=== PATIENT | female | born 1990 | race Caucasian/White ===

== ENCOUNTER 2018-04-15 12:18 | Inpatient (IN) | payer OTHER ==
[~2018-04-15] VITALS: Ht 170.2 cm; Wt 73.0 kg
--- NOTE | 2018-04-15 12:41 | ED GENERAL ADULT ---
History of Present Illness General Chief Complaint: Female Urogenital Problems Stated Complaint: "UTERINE FIBROID" Source: patient Exam Limitations: no limitations Vital Signs & Intake/Output Vital Signs & Intake/Output Vital Signs Date Time Temp Pulse Resp B/P B/P Pulse O2 O2 Flow FiO2 Mean Ox Delivery Rate 04/15 1556 98.7 88 18 121/80 100 Room Air 04/15 1442 98.3 78 134/89 100 Room Air 04/15 1237 98 04/15 1224 98.4 110 20 163/82 100 Room Air Allergies Coded Allergies: No Known Allergies (04/15/18) Reconcile Medications Tranexamic Acid (Lysteda) 650 MG TABLET 2 TAB PO TID UNKNOWN (Reported) during menses Triage Note: C/O PELVIC PAIN THAT RADIATES INTO HER BACK SINCE 09. STATES HX OF UTERINE FIBEROID. STATES SHE STARTED TRANEXAMIC ACID ON WEDNESDAY AND THAT THE PAIN STARTED RIGHT AFTER. RX'D MEDICATION D/T VAGINAL BLEEDING SINCE 03/14/17. N/V. Triage Nurses Notes Reviewed? yes : No Patient currently breastfeeds: No HPI: Patient is a 27-year-old otherwise healthy female with a known uterine fibroid under the treatment of Dr. Pham who presents today with severe pain. She localizes the pain to her suprapubic and left adnexal regions and states that it is radiating through to her back. It began acutely this morning at 9am She began a course of tranexamic acid 3 days ago and states that the pain has become progressively worse since starting that medication. She currently is bleeding less than a normal period. She was instructed by Dr. Pham to come to the emergency department if her pain becomes severe, as she may ultimately require surgical intervention. Upon my initial encounter the patient is writhing in the [facility], very tearful. Past History Travel History Traveled to [place] past 21 day No Medical History Any Pertinent Medical History? 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 No Review of Systems Review of Systems Constitutional: Reports: see HPI. EENTM: Reports: no symptoms. Respiratory: Reports: no symptoms. Cardiovascular: Reports: no symptoms. GI: Reports: see HPI, abdominal pain. Genitourinary: Reports: pain. Musculoskeletal: Reports: back pain. Skin: Reports: no symptoms. Neurological/Psychological: Reports: no symptoms. Hematologic/Endocrine: Reports: no symptoms. Immunologic/Allergic: Reports: no symptoms. All Other Systems: Reviewed and Negative Physical Exam Physical Exam General Appearance: well developed/nourished, no apparent distress, alert, awake , anxious, severe distress Comments: HEENT: Inspection of the head reveals a normocephalic cranium with no signs of trauma. Ophtho: Extraocular muscles are intact. The sclera are noninjected, and there is no obvious discharge. Neck: No signs of trauma or asymmetry to the neck. Respiratory: The patient exhibits no signs of labored breathing. Cardiac: Non-tachycardic. GI: Severe subjective suprapubic pain. Back: Radiation of suprapubic pain through to the back. : Active spotting. Neuro: The patient is oriented to person, place, time, and situation, with no obvious focal motor deficits. Cranial nerves II through XII are intact, and gait is normal. Behavioral: Severely agitated secondary to pain, writhing in the [facility]. Dermatologic: Dermatologic examination reveals no obvious rashes or exanthems. Core Measures ACS in differential dx? No CVA/TIA Diagnosis: No Sepsis Present: No Sepsis Focused Exam Completed? No Progress Differential Diagnoses I considered the following diagnoses in my evaluation of the patient: Uterine fibroid pain, ovarian torsion, ectopic , appendicitis, bowel perforation, other intra-abdominal surgical pathology, multiple other possibilities. Plan of Care: Orders Procedure Date/time Status Clear Liquid Diet 04/16 B Active CBC WITHOUT DIFFERENTIAL 04/16 0600 Active Pathway - chart 04/15 1900 Active Patient Data 04/15 190 Active CULTURE,URINE 04/15 1900 Active Code Status 04/15 1900 Active Add-on Test (ER Only) 04/15 1617 Active Add-on Test (ER Only) 04/15 1433 Active TYPE & SCREEN (NOT X-MATCH) 04/15 1433 Complete HUMAN BETA HCG SCREEN 04/15 1233 Complete URINE 04/15 1225 Active URINALYSIS 04/15 1225 Active COMPREHENSIVE METABOLIC PANEL 04/15 1225 Complete CBC WITHOUT DIFFERENTIAL 04/15 1225 Complete Admit to inpatient 04/15 UNK Active Vital Signs 04/15 UNK Active Nursing Misc 04/15 UNK Active Fernandez, Insertion/Removal/Asses 04/15 UNK Active Current Medications Sig/Jose Start time Last Medication Dose Stop Time Status Admin Dextrose/Sodium 1,000 ML .Q8H 04/15 1900 AC Chloride (D5-Normal Saline) Docusate Sodium 100 MG DAILY NEEDED PRN 04/15 1900 AC (Colace) Hydromorphone HCl 50 MG Q24H PRN 04/15 1900 AC (Dilaudid) Sodium Chloride 45 ML (Normal Saline 50ML Bag) Laboratory Tests 04/15/18 1233: Anion Gap 13, Estimated GFR > 60, BUN/Creatinine Ratio 7.1, Glucose 120 H, Calcium 9.4, Total Bilirubin 0.3, AST 27, ALT 29, Alkaline Phosphatase 47, Total Protein 7.0, Albumin 4.3, Globulin 2.7, Albumin/Globulin Ratio 1.6, Total Beta HCG NEGATIVE, CBC w Diff NO MAN DIFF REQ, RBC 2.98 L, MCV 83.9, MCH 26.3 L, MCHC 31.3 L, RDW 22.5 H, MPV 8.3, Gran % 69.1, Lymphocytes % 19.7 L, Monocytes % 10.7 H, Eosinophils % 0.4, Basophils % 0.1, Absolute Granulocytes 4.7, Absolute Lymphocytes 1.3, Absolute Monocytes 0.7 H, Absolute Eosinophils 0 , Absolute Basophils 0 Microbiology 04/15 1908 URINE ROUT: Urine Culture - CAN Cancelled: DUPLICATED 04/15 1814 URINE ROUT: Urine Culture - CAN Cancelled: DUPLICATED 04/15 173 URINE ROUT: Urine Culture - RECD 04/15 1730 URINE ROUT: Urine Culture - CAN Cancelled: DUPLICATED Initial ED EKG: none Comments: 1430 hrs.: Ultrasound callback from radiology suspicious for left ovarian torsion. No flow seen. I paged Dr. Pham back and she responded abruptly, but she is indisposed and asked that we instead called the steel die printer on-call. They also responded abruptly and stated that they will come to the bedside for stat evaluation. We have sent preoperative lab studies, and we continue to control the patient's pain. 1530 hrs.: On-call steel die printer evaluated the patient the bedside and kept her for the operating room. Patient was transported to the operating room in hemodynamically stable condition for definitive therapy. PATIENT: DELORIS BLANK PRESENT AGE: 27 PATIENT ACCOUNT NO: [id number] : 88 LOCATION: [facility] ORDERING PHYSICIAN: Juan Jose OLIVEIRA SERVICE DATE: 04/15/18 EXAM TYPE: US - US-TRANSVAGINAL EXAMINATION: US TRANSVAGINAL CLINICAL INFORMATION: Lower abdominal pain radiating to the back. History of fibroid. COMPARISON: None TECHNIQUE: Sonographic imaging of the pelvis was performed using transabdominal and transvaginal transducers. FINDINGS: The anteflexed uterus is heterogeneous. It measures approximately 10 cm long, 7.2 cm AP and 7.3 cm transverse. Within the posterior aspect of the lower uterine body, there appears to be a heterogeneous intramural leiomyoma, but is difficult to accurately measure this lesion. It has an estimated size of 5.8 x 4.8 x 5 cm. The leiomyoma appears to compress and displace the endometrium, anteriorly. The endometrium is not well-defined. Submucosal extension of the fibroid is possible. MR imaging of the pelvis would be helpful for further characterization. The right ovary is 3.2 x 4.4 x 4.2 cm. A simple cyst of the right ovary measures 3.7 x 3 x 3 cm. Brief color Doppler imaging of the right ovary shows arterial flow within ovarian stroma. In the left adnexal area, there is a solid structure without internal flow that measures approximately 6.5 x 3.5 x 6 cm. This probably represents the left ovary rather than a subserosal leiomyoma. A normal left ovary is not identified. No free fluid is identified within the cul-de-sac. IMPRESSION: 1. There is a leiomyoma of the lower uterine segment that appears to compress and anteriorly displace the endometrium, which is suboptimally defined. 2. In the left adnexal area, there is a solid-appearing mass without internal flow that measures approximately 6.5 x 3.5 x 6 cm. A normal left ovary is not identified. Left ovarian torsion is suspected. 3. Simple cyst of the right ovary measures up to 3.7 cm. The critical test result was discussed with Juan Jose Babb of the Emergency Room at 2:24 PM on and it was ascertained that the content and the importance of the findings was understood at the time of the direct communication. DICTATED BY: Casey Duncan MD DATE/TIME DICTATED:04/15/181420 WARP SPOOLER:JING DATE/TIME TRANSCRIBED:04/15/181420 CONFIDENTIAL, DO NOT COPY WITHOUT APPROPRIATE AUTHORIZATION. <Electronically signed in Other Vendor System> SIGNED BY: Casey Duncan MD 04/15/18 1434 Departure Departure Time of Disposition: 1530 Disposition: STILL A PATIENT Condition: Stable Clinical Impression Primary Impression: Ovarian torsion Departure Forms: Customer Survey General Discharge Information Critical Care Note Critical Care Note Critical Care Time: 30-74 min Comments: Critical care time spent > 40 minutes. The patient was suffering from a critical illness that acutely impairs one or more vital organ systems and there is a high probability of imminent or life threatening deterioration in the patient's condition. During this time I was personally involved in activities including diagnosing critical surgical emergency, controlling intractable pain, consulting surgical specialists stat, and decision making of high complexity to assess, manipulate, and support vital organ system failure (in this case, acute ovarian torsion) and/or to prevent further life threatening deterioration of the patient's condition. The failure to initiate these interventions on an urgent basis would likely result in sudden, clinically significant or life threatening deterioration in the patient's condition.
[2018-04-15 13:02] LABS: ABSOLUTE BASOPHIL COUNT 0 /CUMM (0.0-0.2); ABSOLUTE EOSINOPHIL COUNT 0 /CUMM (0.0-0.7); ABSOLUTE GRANULOCYTE CT 4.7 /CUMM (1.4-6.5); ABSOLUTE LYMPH COUNT 1.3 /CUMM (1.2-3.4); ABSOLUTE MONOCYTE COUNT 0.7 /CUMM (0.10-0.60); BASOPHIL % 0.1 % (0.0-2.0); EOSINOPHIL % 0.4 % (0-5); GRANULOCYTE % 69.1 % (42.2-75.2); MEAN CORPUSCULAR HGB 26.3 PG (27.0-31.0); MEAN CORPUSCULAR HGB CONC 31.3 G/DL (33.0-37.0); MEAN CORPUSCULAR VOLUME 83.9 FL (81.0-99.0); MEAN PLATELET VOLUME 8.3 FL (7.4-10.4); PLATELET COUNT 402 /CUMM (130-400); RBC DISTRIBUTION WIDTH 22.5 % (11.5-14.5); RED BLOOD CELL CT 2.98 /CUMM (4.20-5.40); WHITE BLOOD CELL COUNT 6.8 /CUMM (4.8-10.8)
--- NOTE | 2018-04-15 14:34 | ULTRASOUND REPORT ---
EXAMINATION: US TRANSVAGINAL CLINICAL INFORMATION: Lower abdominal pain radiating to the back. History of fibroid. COMPARISON: None TECHNIQUE: Sonographic imaging of the pelvis was performed using transabdominal and transvaginal transducers. FINDINGS: The anteflexed uterus is heterogeneous. It measures approximately 10 cm long, 7.2 cm AP and 7.3 cm transverse. Within the posterior aspect of the lower uterine body, there appears to be a heterogeneous intramural leiomyoma, but is difficult to accurately measure this lesion. It has an estimated size of 5.8 x 4.8 x 5 cm. The leiomyoma appears to compress and displace the endometrium, anteriorly. The endometrium is not well-defined. Submucosal extension of the fibroid is possible. MR imaging of the pelvis would be helpful for further characterization. The right ovary is 3.2 x 4.4 x 4.2 cm. A simple cyst of the right ovary measures 3.7 x 3 x 3 cm. Brief color Doppler imaging of the right ovary shows arterial flow within ovarian stroma. In the left adnexal area, there is a solid structure without internal flow that measures approximately 6.5 x 3.5 x 6 cm. This probably represents the left ovary rather than a subserosal leiomyoma. A normal left ovary is not identified. No free fluid is identified within the cul-de-sac. IMPRESSION: 1. There is a leiomyoma of the lower uterine segment that appears to compress and anteriorly displace the endometrium, which is suboptimally defined. 2. In the left adnexal area, there is a solid-appearing mass without internal flow that measures approximately 6.5 x 3.5 x 6 cm. A normal left ovary is not identified. Left ovarian torsion is suspected. 3. Simple cyst of the right ovary measures up to 3.7 cm. The critical test result was discussed with Juan Jose Babb of the Emergency Room at 2:24 PM on and it was ascertained that the content and the importance of the findings was understood at the time of the direct communication.
[2018-04-15] MEDS ORDERED: LYSTEDA650 M1 PO (14:36)
--- NOTE | 2018-04-15 15:52 | History & Physical Pre-Op ---
General Information and HPI MD Statement: I have seen and personally examined DELORIS BLANK and documented this H&P. The patient is a 27 year old F who presented with a patient stated chief complaint of [severe abdominal pain. Source of Information: patient Exam Limitations: no limitations History of Present Illness: 27yo, c/o acute severe abdominal pain since 9 am. She localizes the pain to her suprapubic and left adnexal regions and states that it is radiating through to her back. she has h/o menorrhagia and uterine fibroids. Patient described the pain was persistent, pain scale 10 out of 10 .she began a course of tranexamic acid 3 days ago for menorrhagia. She currently is bleeding less than a normal period. Patient came to ER for evaluation. I got call from Dr. Estrada ( ER attending), stated u/s show left ovarian solid mass, 6 cm in size, no blood flow , ovarian torsion suspected. 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 EENTM: Reports: no symptoms. Cardiovascular: Reports: no symptoms. Respiratory: Reports: no symptoms. Genitourinary: Reports: see HPI. All Other Systems: Reviewed and Negative Exam & Diagnostic Data Last 24 Hrs of Vital Signs/I&O Vital Signs Date Time Temp Pulse Resp B/P B/P Pulse O2 O2 Flow FiO2 Mean Ox Delivery Rate 04/15 1556 37.1 88 18 121/80 100 Room Air 04/15 1442 36.8 78 134/89 100 Room Air 04/15 1237 98 04/15 1224 36.9 110 20 163/82 100 Room Air Intake & Output 04/15 1600 04/15 0800 04/15 0000 Intake Total Output Total Balance Patient 77.111 kg Weight Weight Reported by Patient Measurement Method Physical Exam: VSS CV RRR Lungs CTA B/L Abdomen: diffuse tender at lower abdomen, pt redfuse exam further. Last 24 Hrs of Labs/Moose: Laboratory Tests 04/15/18 1233: Anion Gap 13, Estimated GFR > 60, BUN/Creatinine Ratio 7.1, Glucose 120 H, Calcium 9.4, Total Bilirubin 0.3, AST 27, ALT 29, Alkaline Phosphatase 47, Total Protein 7.0, Albumin 4.3, Globulin 2.7, Albumin/Globulin Ratio 1.6, CBC w Diff NO MAN DIFF REQ, RBC 2.98 L, MCV 83.9, MCH 26.3 L, MCHC 31.3 L, RDW 22.5 H, MPV 8.3, Gran % 69.1, Lymphocytes % 19.7 L, Monocytes % 10.7 H, Eosinophils % 0.4, Basophils % 0.1, Absolute Granulocytes 4.7, Absolute Lymphocytes 1.3, Absolute Monocytes 0.7 H, Absolute Eosinophils 0, Absolute Basophils 0 Assessment/Plan Assessment/Plan: 27yo, abdominal pain, ?ovarian torison 1. u/s results d/w pt in detail, she understand. emergency surgery to detorse ovary , possible cystectomy, possible oophrectomy and any other necessary procedures d/w pt in detail, she understand. R/B of exploratory laparotomy, ovarian detorsion, possible cystectomy, possible oophrectomy and any other necessary procedure d/w pt , including but not limit to infection, bleeding , damage other organs, reduce future fertility, wound infection etc, d/w pt she understand and agreed with surgery, all questions answered, informed consent obtained. OR informed.device processing engineer team to OR As Ranked By This Provider Problem List: 1. Ovarian torsion 2. Abdominal pain Attending MD Review Statement Attending Statement Attending MD Statement: examined this patient, discussed w/nursing
--- NOTE | 2018-04-15 17:54 | Operative Report ---
Operative/Inv Procedure Report Surgery Date: 04/15/18 Name of Procedure: Open appendectomy Pre-Operative Diagnosis: Ovarian torsion Post-Operative Diagnosis: Tip appendicitis with no evidence of ovarian torsion Estimated Blood Loss: anusha Surgeon/Immigration Inspector: DO Junior Dr.Xiolan Benito Ortega MD, MD Anesthesia: general endotracheal tube Monitors: Per routine Specimens: Vermiform appendix Complications: None Operative Indication: This is a 27-year-old female who presented with severe abdominal pain. She had an abdominal ultrasound which demonstrated a masslike right ovary with no evidence of blood flow. This is consistent with ovarian torsion she was taken emergently to the operating room by gynecology. In the operating room she was found to have normal ovaries both sides. The appendix appeared abnormal so I was in the room and I was asked to consult. Operative/Procedure Note Note: The abdomen was already opened and a retractor was in place. The cecum was identified the appendix was retrocecal so I had to lift the come up into the wound to just see the appendix. The body of the appendix was normal but the tip was firm and enlarged incision with tip appendicitis. To make sure we are not missing diverticulitis the sigmoid colon was located. I inspected the entire length of the sigmoid colon which appeared normal. At this point we concluded that the abdominal pain was from her appendicitis and we prepared to perform an appendectomy. The appendix was mobilized using electrocautery. The mesoappendix was identified and then clamped. The mesial appendix was divided distal to the clip left cautery. A 2-0 Vicryl was then used to ligate the mesoappendix. Once the base of the appendix was well exposed a 35 mm blue TA stapler was fired across the base of the appendix. The appendix was sharply divided distal to this. This was removed from the field and sent for routine path. We inspected the right lower quadrant for bleeding. Hemostasis was adequate. At this point I scrubbed out and gynecology closed incision
--- NOTE | 2018-04-15 18:46 | Operative Report ---
Operative/Inv Procedure Report Surgery Date: 04/15/18 Name of Procedure: Exploratory laparotomy,righht ovarian cyst aspiration, appendectomy. Pre-Operative Diagnosis: Severe abdominal pain, possible left ovarian torsion Post-Operative Diagnosis: Severe abdominal pain, tip appendicitis, small right ovarian cyst Estimated Blood Loss: less than 50ml Surgeon/Nuclear Logging Engineer: Bhavani Oliver MD, MD John Aversa, Anesthesia: general endotracheal tube IV Fluids: 1 L lactated Ringer's Urine Output: 125 mL clear urine at the end of procedure Specimens: Appendix, aspiration fluid, pelvic washings Complications: None Condition: Stable Operative Indication: 27-year-old, severe abdominal pain, ultrasound showed left adnexal solid mass 6 cm in size, no internal flow, suspect ovarian torsion. Operative/Procedure Note Note: The risks, benefits, indications of the procedure were reviewed with the patient and informed consent was obtained. The patient was taken to the operating room with IV running. The patient was placed in the supine position, given general anesthesia, prepared and draped in the usual sterile fashion. Fernandez catheter was placed as well. A Pfannenstiel skin incision was made approximately 2 cm above the symphysis pubis and extended sharply to the rectus fascia. The fascia was then incised bilaterally with Bovie, and the muscle of the anterior abdominal wall were in the midline by sharp and blunt dissection. The peritoneum was grasp itching 2 pickups, elevated and entered sharply with the Metzenbaum scissors. The pelvis was examined and, pelvic washing was obtained. An O'Aditya O'Ingram retractor was placed into incision and the bowel packed away with moist laparotomy sponge. Left ovary was examined, normal size, no ovarian torsion. Right ovary was examined, 2 cm cyst was aspirated, clear fluid. Uterus appears to normal size as well. No free fluid in the pelvis. At this time, general surgeon was called for intraoperative consultation, appendectomy was done by (see his op report). The pelvis was irrigated. All lap sponge and instruments were removed from on the abdomen. The peritoneum was closed with 3-0 Vicryl. The fascia was closed with 0 Vicryl in a running fashion. And hemostasis was assured. The skin was closed with 4-0 Monocryl subcuticularly. Sponge, lap, needle and instrument counts were correct 2. The patient was taken to the recovery room, awake and in stable condition. Findings: Normal uterus and left adnexa, small right ovarian simple cyst. Tip appendicitis. Discharge Disposition: PACU
[2018-04-15 20:00] VITALS: BP 117/62
[2018-04-15 20:24] VITALS: BP 117/62
[2018-04-15 22:00] VITALS: BP 114/65
--- NOTE | 2018-04-15 22:17 | PN- General Surgery ---
Subjective Subjective: 27 y/o female S/P open laparotomy for tip appendicitis and drainage of right ovarian cyst, resting in bed, feels well, pain controlled, tolerating POs clears Objective Vital Signs and I&Os Vital Signs Date Time Temp Pulse Resp B/P B/P Pulse O2 O2 Flow FiO2 Mean Ox Delivery Rate 04/15 2024 98.5 64 18 117/62 04/15 2000 98.5 64 18 117/62 100 Room Air 04/15 1556 98.7 88 18 121/80 100 Room Air 04/15 1442 98.3 78 134/89 100 Room Air 04/15 1237 98 04/15 1224 98.4 110 20 163/82 100 Room Air Intake & Output 04/15 1600 04/15 0800 04/15 0000 04/14 1600 04/14 0800 04/14 0000 Intake Total Output Total Balance Patient 170 lb Weight Weight Reported by Patient Measurement Method VSS, afebrile chest -CTA symmetric Heart -RRR Abd -soft, generalized tenderness, pos BS dressing -CDI bilateral lower extremities - calves soft, sensory-motor intact Current Medications: Current Medications Sig/Jose Start time Last Medication Dose Route Stop Time Status Admin Dextrose/Sodium 1,000 ML .Q8H 04/15 1900 AC Chloride IV Docusate Sodium 100 MG DAILY NEEDED PRN 04/15 1900 AC PO Hydromorphone HCl 50 MG Q24H PRN 04/15 1900 AC Sodium Chloride 45 ML IV Hydromorphone HCl 0 .STK-MED ONE 04/15 1446 DC .ROUTE Hydromorphone HCl 1 MG ONCE ONE 04/15 1445 DC 04/15 IV 04/15 1446 1448 Hydromorphone HCl 1 MG ONCE ONE 04/15 1345 DC 04/15 IV 04/15 1346 1340 Hydromorphone HCl 0 .STK-MED ONE 04/15 1319 DC .ROUTE Ketorolac 30 MG ONCE ONE 04/15 1230 DC 04/15 Tromethamine IV 04/15 1231 1235 Ketorolac 0 .STK-MED ONE 04/15 1230 DC Tromethamine .ROUTE Ondansetron HCl 4 MG ONCE ONE 04/15 1230 DC 04/15 IV 04/15 1231 1235 Ondansetron HCl 0 .STK-MED ONE 04/15 1230 DC .ROUTE Results Last 48 Hours of Labs: Laboratory Tests 04/15 1233 Chemistry Sodium (137 - 145 mmol/L) 142 Potassium (3.5 - 5.1 mmol/L) 3.8 Chloride (98 - 107 mmol/L) 107 Carbon Dioxide (22 - 30 mmol/L) 22 Anion Gap (5 - 16) 13 BUN (7 - 17 mg/dL) 5 L Creatinine (0.5 - 1.0 mg/dL) 0.7 Estimated GFR (>60 ml/min) > 60 BUN/Creatinine Ratio (7 - 25 %) 7.1 Glucose (65 - 99 mg/dL) 120 H Calcium (8.4 - 10.2 mg/dL) 9.4 Total Bilirubin (0.2 - 1.3 mg/dL) 0.3 AST (14 - 36 U/L) 27 ALT (9 - 52 U/L) 29 Alkaline Phosphatase (<127 U/L) 47 Total Protein (6.3 - 8.2 g/dL) 7.0 Albumin (3.5 - 5.0 g/dL) 4.3 Globulin (1.9 - 4.2 gm/dL) 2.7 Albumin/Globulin Ratio (1.1 - 2.2 %) 1.6 Total Beta HCG (NEGATIVE) NEGATIVE Hematology CBC w Diff NO MAN DIFF REQ WBC (4.8 - 10.8 /CUMM) 6.8 RBC (4.20 - 5.40 /CUMM) 2.98 L Hgb (12.0 - 16.0 G/DL) 7.8 L Hct (37 - 47 %) 25.0 L MCV (81.0 - 99.0 FL) 83.9 MCH (27.0 - 31.0 PG) 26.3 L MCHC (33.0 - 37.0 G/DL) 31.3 L RDW (11.5 - 14.5 %) 22.5 H Plt Count (130 - 400 /CUMM) 402 H MPV (7.4 - 10.4 FL) 8.3 Gran % (42.2 - 75.2 %) 69.1 Lymphocytes % (20.5 - 51.1 %) 19.7 L Monocytes % (1.7 - 9.3 %) 10.7 H Eosinophils % (0 - 5 %) 0.4 Basophils % (0.0 - 2.0 %) 0.1 Absolute Granulocytes (1.4 - 6.5 /CUMM) 4.7 Absolute Lymphocytes (1.2 - 3.4 /CUMM) 1.3 Absolute Monocytes (0.10 - 0.60 /CUMM) 0.7 H Absolute Eosinophils (0.0 - 0.7 /CUMM) 0 Absolute Basophils (0.0 - 0.2 /CUMM) 0 Assessment/Plan Assessment/Plan POC -open tip appendicitis right ovarian drainage Advance diet as tolarated OOB in am ALPS for DVT proph D/C planning for am follow-up with Dr. Dixon 2 weeks call office for appointment H/H low -repeat CBC in am Problem List: 1. Ovarian torsion 2. Appendicitis Core Measures Venous Thromboembolism VTE Risk Factors Surgery No Mechanical VTE Prophylaxis d/t N/A MechProphylax Ordered No VTE Pharm Prophylaxis d/t NA PharmProphylax ordered
[2018-04-15 22:26] VITALS: BP 114/65
[2018-04-16] VITALS (12 sets, daily range): BP systolic 94–125; BP diastolic 50–72
--- NOTE | 2018-04-16 05:27 | PN- OBGYN ---
Surgical Brief Attending Note Brief Attending Note: Late entry for 04/15/2018 8:30PM pt is resting in bed, c/o pain is controlled by NEONATAL NURSE PRACTITIONER, no other complaints VSS Abdomen: soft, mild tender at lower abdomen, no rebound, no Guarding, incision D /C/I Operative findings d/w pt in detail, she understand. will continue RT postop care, repeat CBC AM.
[2018-04-16 09:08] LABS: ABSOLUTE BASOPHIL COUNT 0 /CUMM (0.0-0.2); ABSOLUTE EOSINOPHIL COUNT 0 /CUMM (0.0-0.7); ABSOLUTE LYMPH COUNT 1.2 /CUMM (1.2-3.4); ABSOLUTE MONOCYTE COUNT 0.8 /CUMM (0.10-0.60); BASOPHIL % 0.4 % (0.0-2.0); EOSINOPHIL % 0 % (0-5); GRANULOCYTE % 74.4 % (42.2-75.2); MEAN CORPUSCULAR HGB 26.6 PG (27.0-31.0); MEAN CORPUSCULAR HGB CONC 31.8 G/DL (33.0-37.0); MEAN CORPUSCULAR VOLUME 83.7 FL (81.0-99.0); MEAN PLATELET VOLUME 9.2 FL (7.4-10.4); PLATELET COUNT 279 /CUMM (130-400); RBC DISTRIBUTION WIDTH 23.1 % (11.5-14.5); WHITE BLOOD CELL COUNT 8.1 /CUMM (4.8-10.8)
--- NOTE | 2018-04-16 09:21 | PN- General Surgery ---
Subjective Subjective: Awake, alert No complaints overnight Tolerating diet, pain well controlled Objective Vital Signs and I&Os Vital Signs Date Time Temp Pulse Resp B/P B/P Pulse O2 O2 Flow FiO2 Mean Ox Delivery Rate 04/16 0809 97.7 78 16 98/58 99 Room Air 04/16 0800 97.7 78 16 98/58 04/16 0615 98.6 68 18 100/50 100 Room Air 04/16 0600 98.6 68 18 100/50 04/16 0215 98.7 54 20 94/50 100 Room Air 04/16 0000 98.4 53 16 110/60 04/16 0000 98.4 53 16 110/60 99 04/15 2226 98.2 65 18 114/65 100 Room Air 04/15 2200 98.2 65 18 114/65 04/15 2024 98.5 64 18 117/62 04/15 2000 98.5 64 18 117/62 100 Room Air 04/15 1556 98.7 88 18 121/80 100 Room Air 04/15 1442 98.3 78 134/89 100 Room Air 04/15 1237 98 04/15 1224 98.4 110 20 163/82 100 Room Air Intake & Output 04/16 1600 04/16 0800 04/16 0000 04/15 1600 04/15 0800 04/15 0000 Intake Total 1000 125 Output Total 500 300 Balance 500 -175 Intake, IV 1000 125 Output, Urine 500 300 Patient 161 lb 170 lb Weight Weight Bed scale Reported by Patient Measurement Method Physical Exam: afebrile bp high 90's systolic, denies lightheadedness or nausea Abd: soft, good bs, nondistended Wd: dressing clean and dry Assessment/Plan Assessment/Plan 27yo female pod 1 s/p open exploration for ovarian torsion/open appendectomy looks good post appy cbc last night 7.06/11, pending this am follow up cbc per Dr Benito VILLA planning per CHILDHOOD TEACHER - follow up instructions given to see Dr Dixon in 2 weeks, call for an appointment
[2018-04-16 09:47] LABS: HEMATOCRIT 19.2 % (37-47)
--- NOTE | 2018-04-16 11:34 | PN- OBGYN ---
Surgical Brief Attending Note Brief Attending Note: Pt is resting in bed, pain controlled by CINDER CRANE OPERATOR, tolerate clear lquid diet, no nausea, flatus(-). boss in place, clear urine. no other issues PE: VSS CV RRR Lungs CTA B/L Abdomen: soft, mild tender at lower abdomen, no rebound, no guarding. incision dressing D/C/I Ext: DCT (-) small amount of vaginal bleeidng on pad A/P: 27yo, s/p Exp, lap , right ovarian cyst aspiration, appendectomy, POD #1 1. h/h 6.1/19.2, will transfuse 3 U PRBC, R/B/A of blood transfusion d/w pt, she understand, all questions answered, informed cosnent obtained. 2. surgery input appreciated, will follow recommendation 3. will d/c CINDER CRANE OPERATOR, switch to PO pain meds 4. will d/c boss, encourage ambulation. 5. will monitor blaise
[2018-04-17 06:42] VITALS: BP 114/73
[2018-04-17 09:18] LABS: ABSOLUTE BASOPHIL COUNT 0 /CUMM (0.0-0.2); ABSOLUTE EOSINOPHIL COUNT 0.1 /CUMM (0.0-0.7); ABSOLUTE GRANULOCYTE CT 3.6 /CUMM (1.4-6.5); ABSOLUTE LYMPH COUNT 2.2 /CUMM (1.2-3.4); ABSOLUTE MONOCYTE COUNT 0.8 /CUMM (0.10-0.60); BASOPHIL % 0.6 % (0.0-2.0); EOSINOPHIL % 1.7 % (0-5); GRANULOCYTE % 53.7 % (42.2-75.2); MEAN CORPUSCULAR HGB 27.6 PG (27.0-31.0); MEAN CORPUSCULAR HGB CONC 32.6 G/DL (33.0-37.0); MEAN CORPUSCULAR VOLUME 84.6 FL (81.0-99.0); MEAN PLATELET VOLUME 8.6 FL (7.4-10.4); PLATELET COUNT 318 /CUMM (130-400); RBC DISTRIBUTION WIDTH 19.2 % (11.5-14.5); WHITE BLOOD CELL COUNT 6.8 /CUMM (4.8-10.8)
[2018-04-17 09:44] LABS: RED BLOOD CELL CT 3.42 /CUMM (4.20-5.40)
--- NOTE | 2018-04-17 10:38 | PN- OBGYN ---
Surgical Brief Attending Note Brief Attending Note: pt is rsering in bed, tolerate diet, void without difficulties, flatus(+), c/o vaginal bleeidng increased compare to before.( h/o menorrheagia, she was taking lysteda prior to admisison) PE: VSS Abdomen: soft, LLQ moderate tender, BS(+), incision D/C/I Ext: DCT (-) A/P: 27yo, s/p laparotomy, right ovarian cyst aspiration, appendectomy, POD#2 1. h/h9.02/13 after transfusion 2. consider LLQ tenderness, will schedule CT scan to evaluate 3. pain management as needed 4. will monitor VB closely
[2018-04-17 15:02] VITALS: BP 124/74
--- NOTE | 2018-04-17 15:46 | CT SCAN REPORT ---
EXAMINATION: CT ABDOMEN AND PELVIS WITH CONTRAST CLINICAL INFORMATION: Left lower quadrant abdominal pain. Moderately tender. Status post laparoscopic appendicectomy and right ovarian cyst aspiration. Surgery was done 2 days ago. COMPARISON: Transvaginal ultrasound done on 04/15/2018. TECHNIQUE: Multidetector volumetric imaging was performed of the abdomen and pelvis following IV administration of 95 mL of Optiray 320 intravenous contrast. Sagittal and coronal reformatted images were obtained on the technologist's workstation. DLP: 342.54 mGy-cm FINDINGS: LUNG BASES: Linear airspace disease is noted at both lung bases, most consistent with hypoventilatory, atelectatic changes. LIVER, GALLBLADDER, AND BILIARY TREE: The liver is normal in size, shape, and attenuation. No focal hepatic lesion or biliary ductal dilatation is present. The gallbladder is unremarkable with no evidence of radiopaque gallstones, gallbladder wall thickening, or obvious pericholecystic inflammatory changes. PANCREAS: Unremarkable. SPLEEN: Unremarkable. ADRENAL GLANDS: Unremarkable. KIDNEYS AND URETERS: Both kidneys are hyperlobulated, likely represent congenital variation, otherwise unremarkable. Both renal collecting system and both ureters are decompressed. BLADDER: Nondependent air pockets are identified within the anterior part of the lumen of the urinary bladder, likely represent changes secondary to recent instrumentation/catheterization. Please correlate clinically. GASTROINTESTINAL TRACT: The large bowel as well as the small bowel loops are decompressed. There is a subtle radiopaque suture identified in the region of the base of the cecum, consistent with recent appendicectomy at right iliac fossa region. Small residual appendiceal stump is noted. There is no abnormal fluid collection or any discrete mass identified at the surgical bed. ABDOMINAL WALL: Multiple air pockets are identified within the lower anterior and pelvic wall bilaterally consistent with recent laparoscopy. OTHER FINDINGS: Free intraperitoneal air is present, also consistent with recent laparoscopy. LYMPH NODES: Normal. VASCULAR: Unremarkable. PELVIC VISCERA: There is a large heterogeneous mixed density into a uterine mass identified within the lower uterine segment extending into the cervix measures 8.4 x 8.1 x 6.2 cm at its maximum anteroposterior by transverse by craniocaudal dimension. When correlating with prior ultrasound of the pelvis, the finding would be consistent with the degenerated submucosal fibroid. Specific note is made of small amount of endometrial cavitary fluid. There is a 2.40 cm left adnexal well-circumscribed hypodensity present, seen best on the coronal images likely represent the left ovary, morphologically appear unremarkable. There is no right adnexal mass identified. The right ovary is not visualized. OSSEOUS STRUCTURES: No suspicious lytic or scrotal abnormalities. IMPRESSION: 1. Evidence of air pockets are noted within the lower anterior abdominal and pelvic last as well as evidence of free intraperitoneal air, consistent with recent surgery done 2 days ago. 2. No evidence of any focal fluid collection identified at the surgical bed. 3. Air pockets within the urinary bladder, most consistent with recent instrumentation. 4. Heterogeneous mixed density mass within the lower uterine segment, may represent recent sonographic detected submucosal leiomyoma. 5. Morphologically normal-appearing left ovary. This critical result was discussed with Dr. Oliver at 3:40 PM on 04/17/2018 and it was ascertained that the content and urgency of the report was understood at the time of direct communication.
[2018-04-17] MEDS ORDERED: HYDROCODON-ACE1 EAC2 PO (16:24)
--- NOTE | 2018-04-17 16:30 | PN- OBGYN ---
Surgical Brief Attending Note Brief Attending Note: pt is ambulating, c/o feels much better, pain controlled by pain medication, small amount of vaginal bleeidng. CT scan: no pathology found. results d/w pt, she understand. will d/c home, f/u in office in 1wk, discharge instructions given, she understand.
--- NOTE | 2018-04-19 10:18 | Discharge Summary ---
Visit Information Visit Dates Admission Date: 04/15/18 Discharge Date: 04/17/18 Hospital Course Course Attending Physician: Bhavani Oliver MD Primary Care Physician: Patient Has No Primary Care Dr Hospital Course: 27-year-old, admitted for severe abdominal pain, suspect for ovarian torsion. She underwent exploratory laparotomy, appendectomy, right ovarian cyst aspiration on April 15, 2018. Patient tolerated the procedure well, no complications. During hospital stay patient remained in stable condition, vitals within normal limits, pain controlled by pain medication. She received 3 units of PRBC due to low H&H(patient had a history of menorrhagia and uterine fibroids, she was taking tranexamic acid at the time of admission .) She was discharged on April 17, 2018 with instructions given Complications: None Allergies: Coded Allergies: No Known Allergies (04/15/18) Significant Procedures: Exploratory laparotomy, appendectomy, right ovarian cyst aspiration Disposition Summary Disposition Principal Diagnosis: Severe abdominal pain, tip appendicitis, right ovarian cyst Additional Diagnosis: Chronic anemia due to uterine fibroids and menorrhagia Discharge Disposition: home or self care Discharge Instructions General Discharge Information Code Status: Full Code Patient's Diet: Regular Patient's Activity: As tolerated Follow-Up Instructions/Appts: Follow-up in office in 1 week Medications at Discharge Discharge Medications: Continue taking these medications: Tranexamic Acid (Lysteda) 650 MG TABLET 2 Tablet ORAL THREE TIMES DAILY Instructions: during menses Comments: NOT GIVEN IN HOSPITAL Start taking the following new medications: Hydrocodone/Acetaminophen (Hydrocodon-Acetaminophen 5-325) 5 MG-325 MG TABLET 2 Tablet ORAL EVERY 6 HOURS NEEDED as needed for ABDOMINAL PAIN Qty = 30 No Refills Copies To: Bhavani Oliver MD Attending Review Statement Documenting Attending: Bhavani Oliver MD
== END 2018-04-17 18:00 | DRG 518 ==
LOC: ERH 12:18 → ER-OR 12:59 → PACUH 18:32 → ENRESERV 18:55 → ENTRNSPT 20:01 → EDTRNSPTSTS 20:04 → 2NB 20:13 → CMPTRNSPT 21:02 → ENTRNSPT 04-17 17:44 → EDTRNSPT 04-17 17:48 → EDTRNSPTSTS 04-17 17:48 → 2NB 04-17 18:00 → CMPTRNSPT 04-17 18:04
PROVIDERS: Obstetrics & Gynecology; Physician Assistant Medical
PROC: 0DTJ0ZZ Resection of Appendix, Open Approach (ICD-10-PCS; principal; 2018-04-15)
PROC: 0U903ZZ Drainage of Right Ovary, Percutaneous Approach (ICD-10-PCS; 2018-04-15)
PROC: 30233N1 Transfusion of Nonautologous Red Blood Cells into Peripheral Vein, Percutaneous Approach (ICD-10-PCS; 2018-04-16)
DX: N83.201 Unspecified ovarian cyst, right side (principal); N92.0 Excessive and frequent menstruation with regular cycle; D25.9 Leiomyoma of uterus, unspecified
CPT/HCPCS: 2NBSP; 36415; 36592; 74177; 81025; 86920; 87086; 88305; 96374; 96375; 96376; C9290; J0131; J0690; J1170; J1885; J2250; J2405; J3010; J3101; J3490; J7042; P9016

== ENCOUNTER 2018-05-18 16:29 | Emergency (ER) | payer OTHER ==
[~2018-05-18] VITALS: Ht 170.2 cm; Wt 74.8 kg
[~2018-05-18 16:29] MED LIST: HYDROCODON-ACE1 EAC2 PO; LYSTEDA650 M1 PO
--- NOTE | 2018-05-18 17:28 | ED GI/GU/ABDOMINAL COMPLAINT ---
History of Present Illness General Chief Complaint: Abdominal Pain/Flank Pain Stated Complaint: ABD PAIN FIBROID Source: patient, family, old records Exam Limitations: no limitations Vital Signs & Intake/Output Vital Signs & Intake/Output Vital Signs Date Time Temp Pulse Resp B/P B/P Pulse O2 O2 Flow FiO2 Mean Ox Delivery Rate 05/19 0109 98.7 79 18 99/61 100 Room Air 05/19 0043 98.7 86 18 99/57 100 Room Air 05/19 0004 99.0 88 18 101/59 99 Room Air 05/18 2230 98.8 88 18 100/61 100 Room Air 05/18 2213 98.7 96 18 99/59 100 Room Air 05/18 2141 99.0 98 18 101/60 100 Room Air 05/18 2104 98.7 94 18 109/62 98 Room Air 05/18 2011 99.0 98 18 115/74 100 Room Air 05/18 1930 99.0 100 18 115/72 100 Room Air 05/18 1913 99.1 100 18 122/76 100 Room Air 05/18 1630 97.0 122 18 141/85 96 Room Air ED Intake and Output 05/19 0000 05/18 1200 Intake Total Output Total Balance Patient 165 lb Weight Allergies Coded Allergies: No Known Allergies (04/15/18) Reconcile Medications Estrogens, Conjugated (Premarin) 1.25 MG TABLET 2 TAB PO Q6 bleeding take four times a day while heavy bleeding, twice a day when bleeding improves [FERRUM] 1 TAB PO DAILY SUPPLEMENT (Reported) Ondansetron (Zofran Odt) 4 MG TAB.RAPDIS 1 TAB SL TID PRN NAUSEA Tranexamic Acid (Lysteda) 650 MG TABLET 2 TAB PO TID UNKNOWN (Reported) during menses Triage Note: PT TO TRIAGE, STATES THAT SHE WAS SENT TO ER BY HER OB DUE TO HEAVEY VAGINAL BLEEDING DUE TO UTERINE FIBROID, PT STATES THAT SHE HAS BEEN BLEEDING HEAVEY FOR THE PAST FEW DAYS GOING THROUGH 8-14 PADS A DAY. PAIN SHARP. FEELS WEAK Triage Nurses Notes Reviewed? yes ? n Is pt currently ? No Onset: Gradual Duration: day(s): Timing: recent history Quality/Severity: moderate Location: left lower quadrant, suprapubic HPI: 28yo female with hx of uterine fibroids, ovarian cysts, anemia presents to ED complaining of vaginal bleeding x 4 days. Patient reports she has had vaginal bleeding for several weeks however over the past 4 days bleeding has become heavy, today she had obvious bleeding with passage of large clots. Patient is wearing large pads has to change them every 2 hours. Patient also reports left lower quadrant pain and suprapubic cramping sensation. Patient recently went to the OR one month ago with Dr. Oliver for ovarian cyst and appendicitis, she states her left ovarian cyst was drained at that time. She states that at that time she required a blood transfusion. Patient reports that with heavy bleeding she has been experiencing weakness, fatigue, shortness of breath on exertion, left- sided chest pains. The patient's girlfriend states that she appears more pale today. Patient also endorses chills. (Carla Kenney) Past History Travel History Traveled to [place] past 21 day No Medical History Any Pertinent Medical History? see below for history Neurological: NONE EENT: NONE Cardiovascular: NONE Respiratory: NONE Gastrointestinal: NONE Hepatic: NONE Renal: NONE Musculoskeletal: NONE Psychiatric: NONE Endocrine: NONE Blood Disorders: anemia Cancer(s): NONE FINAL INSTALLER INSPECTOR/Reproductive: UTERINE FIBROID History of MRSA: No History of VRE: No History of CDIFF: No Surgical History Surgical History: myomectomy Psychosocial History Who do you live with Significant Other Services at Home None What is your primary language Thai Tobacco Use: Never used ETOH Use: denies use Illicit Drug Use: denies illicit drug use Family History Hx Contributory? No (Calra Kenney) Review of Systems Review of Systems Constitutional: Reports: see HPI. EENTM: Reports: no symptoms. Respiratory: Reports: see HPI. Cardiovascular: Reports: see HPI. GI: Reports: see HPI. Genitourinary: Reports: see HPI. Musculoskeletal: Reports: no symptoms. Skin: Reports: see HPI. Neurological/Psychological: Reports: no symptoms. Hematologic/Endocrine: Reports: no symptoms. Immunologic/Allergic: Reports: no symptoms. All Other Systems: Reviewed and Negative (Carla Kenney) Physical Exam Physical Exam General Appearance: well developed/nourished, no apparent distress, alert, awake Head: atraumatic, normal appearance Eyes: Bilateral: normal appearance. Ears, Nose, Throat, Mouth: hearing grossly normal Neck: normal inspection, supple, full range of motion Respiratory: normal breath sounds, no respiratory distress, lungs clear Cardiovascular: regular rate/rhythm Gastrointestinal: normal bowel sounds, soft, no organomegaly, LLQ, suprapubic tenderness Pelvic: moderate/heavy bleeding with clots present in vaginal vault Back: normal inspection Extremities: normal range of motion Neurologic/Psych: awake, alert, oriented x 3 Skin: intact, normal color, warm/dry Core Measures ACS in differential dx? No Sepsis Present: No Sepsis Focused Exam Completed? No (Socorro OLIVEIRA,Carla Sawyer) Progress Differential Diagnosis: ectopic , intrauterine , ovarian cyst, PID/cervicitis, UTI/pyelo, uterine fibroids, acute blood loss anemia Plan of Care: Orders Procedure Date/time Status BLOOD PRODUCT PICKUP 05/18 2147 Active BLOOD PRODUCT PICKUP 05/18 185 Active LEUKOCYTE POOR (PACKED CELLS) 05/18 180 Active Add-on Test (ER Only) 05/18 173 Active EKG 05/18 173 Active TROPONIN LEVEL 05/18 172 Complete PARTIAL THROMBOPLASTIN TIME 05/18 172 Complete PROTHROMBIN TIME 05/18 172 Complete COMPREHENSIVE METABOLIC PANEL 05/18 1727 Complete CBC WITHOUT DIFFERENTIAL 05/18 172 Complete TYPE & SCREEN (NOT X-MATCH) 05/18 172 Complete URINE 05/18 170 Complete URINALYSIS 05/18 170 Complete Current Medications Sig/Jose Start time Last Medication Dose Stop Time Status Admin Ondansetron HCl 4 MG ONCE ONE 05/18 1915 CAN (Zofran) 05/18 191 Laboratory Tests 05/18/18 1730: Anion Gap 8, Estimated GFR > 60, BUN/Creatinine Ratio 11.4, Glucose 94, Calcium 9.1, Total Bilirubin 0.1 L, AST 18, ALT 22, Alkaline Phosphatase 45, Troponin I < 0.01, Total Protein 6.6, Albumin 3.8, Globulin 2.8, Albumin/Globulin Ratio 1.4 , PT 12.7 H, INR 1.16, APTT 26, CBC w Diff NO MAN DIFF REQ, RBC 2.51 L, MCV 80.6 L, MCH 24.8 L, MCHC 30.8 L, RDW 18.0 H, MPV 8.1, Gran % 62.1, Lymphocytes % 27.3, Monocytes % 7.5, Eosinophils % 0.1, Basophils % 3.0 H, Absolute Granulocytes 4.7, Absolute Lymphocytes 2.1, Absolute Monocytes 0.6, Absolute Eosinophils 0, Absolute Basophils 0.2 05/18/18 1720: Urine Color STRAW, Urine Clarity CLEAR, Urine pH 6.0, Ur Specific [place] <= 1.005, Urine Protein NEG, Urine Ketones NEG, Urine Nitrite NEG, Urine Bilirubin NEG, Urine Urobilinogen 0.2, Ur Leukocyte Esterase TRACE H, Ur Microscopic SEDIMENT EXAMINED, Urine RBC 15-25 H, Urine WBC 3-5 H, Ur Epithelial Cells FEW , Urine Hemoglobin LARGE H, Urine Glucose NEG, Urine Test NEGATIVE Low H/H, patient requires blood transfusion, consent forms signed. Spoke with Dr. Oliver regarding this patient - she agrees with the plan. Treat with high dose estrogen for bleeding. Premarin 2.5mg QID until bleeding lessens and then BID. Zofran 4mg. After transfusion if patient is stable she can go home and the patient can call the office tomorrow and be seen tomorrow. No imaging necessary at this time. PAtient has completed blood transfusions. She feels comfortable going home at this time. She has close follow up with CORPORATE OPERATIONS COMPLIANCE MANAGER for tomorrow. Patient has hypotension however ambulates with steady gait, no distress. She agrees with the plan of care. Discussed findings with Dr. Miles who agrees with the plan of care. Diagnostic Imaging: Viewed by Me: Radiology Read. Discussed w/RAD: Radiology Read. Radiology Impression: PATIENT: DELORIS BLANK PRESENT AGE: 28 PATIENT ACCOUNT NO: [id number] : 88 LOCATION: [facility] ORDERING PHYSICIAN: Carla LOIVEIRA SERVICE DATE: 05/18/18 EXAM TYPE: RAD - XRY-PORTABLE CHEST XRAY EXAMINATION: XR PORTABLE CHEST CLINICAL INFORMATION: Chest pain. COMPARISON: None TECHNIQUE: Portable frontal view of the chest was obtained. 6:28 PM FINDINGS: No significant abnormality is noted involving the heart, lungs, mediastinum, bony thorax or soft tissues. IMPRESSION: Unremarkable examination. DICTATED BY: Matty Estrella MD DATE/TIME DICTATED:05/18/181906 CREDIT REPRESENTATIVE:JING DATE/TIME TRANSCRIBED:05/18/181906 CONFIDENTIAL, DO NOT COPY WITHOUT APPROPRIATE AUTHORIZATION. <Electronically signed in Other Vendor System> SIGNED BY: Matty Estrella MD 05/18/181910 Initial ED EKG: sinus tachycardia @100bpm, nonspecific ST changes (Carla Kenney) Departure Departure Disposition: HOME OR SELF CARE Condition: Stable Clinical Impression Primary Impression: Vaginal bleeding Secondary Impressions: Anemia Referrals: Patient Has No Primary Care Dr (PCP/Family) Additional Instructions: Begin Premarin as prescribed (four times a day during heavy bleeding, twice a day when bleeding lessens). Take this medication with Zofran. Follow up with OB/ FINAL INSTALLER INSPECTOR tomorrow, call the office to make an appointment. Return with worsening symptoms or concerns. Please note that there might be incidental findings in your evaluation that are unrelated to the current emergency department visit. Please notify your primary care doctor about this emergency department visit in order to obtain and review all of the testing performed so that these incidental findings can be monitored as needed. If you had an x-ray performed, please understand that some fractures may not be seen on the initial set of x-rays. If your symptoms persist you might need a repeat set of x-rays to check for such a fracture. If you had a laceration evaluated, please understand that foreign bodies such as glass or wood may not be visible to the naked eye or on plain x-rays. If the wound becomes red, swollen, increasingly more painful or if there is any drainage from the wound, please have it reevaluated by a physician for the possibility of a retained foreign body. If you're unable to follow up as outlined in the discharge instructions please return to the emergency department. Thank you for choosing the [facility] Emergency Department for your care. It was a pleasure to serve you today. Departure Forms: Customer Survey General Discharge Information Prescriptions: Current Visit Scripts Ondansetron (Zofran Odt) 1 TAB SL TID PRN NAUSEA #20 TAB Estrogens, Conjugated (Premarin) 2 TAB PO Q6 #40 TAB take four times a day while heavy bleeding, twice a day when bleeding improves (Carla Kenney) PA/CLOCKMAKER APPRENTICE Co-Sign Statement Statement: ED Attending supervision documentation- I saw and evaluated the patient. I have also reviewed all the pertinent lab results and diagnostic results. I agree with the findings and the plan of care as documented in the PA's/CLOCKMAKER APPRENTICE's documentation. x I have reviewed the ED Record and agree with the PA's/CLOCKMAKER APPRENTICE's documentation. [] Additions or exceptions (if any) to the PAs/CLOCKMAKER APPRENTICE's note and plan are summarized below: [] (Ginger TAVARES,Jamal) Critical Care Note Critical Care Note Critical Care Time: 30-74 min (Socorro OLIVEIRA,Carla Sawyer)
[2018-05-18 18:00] LABS: PT 12.7 SEC (9.4-12.5); PTT 26 SEC (25-37)
[2018-05-18 18:01] LABS: ABSOLUTE BASOPHIL COUNT 0.2 /CUMM (0.0-0.2); ABSOLUTE EOSINOPHIL COUNT 0 /CUMM (0.0-0.7); ABSOLUTE GRANULOCYTE CT 4.7 /CUMM (1.4-6.5); ABSOLUTE LYMPH COUNT 2.1 /CUMM (1.2-3.4); ABSOLUTE MONOCYTE COUNT 0.6 /CUMM (0.10-0.60); EOSINOPHIL % 0.1 % (0-5); GRANULOCYTE % 62.1 % (42.2-75.2); HEMATOCRIT 20.2 % (37-47); MEAN CORPUSCULAR HGB 24.8 PG (27.0-31.0); MEAN CORPUSCULAR HGB CONC 30.8 G/DL (33.0-37.0); MEAN CORPUSCULAR VOLUME 80.6 FL (81.0-99.0); MEAN PLATELET VOLUME 8.1 FL (7.4-10.4); PLATELET COUNT 347 /CUMM (130-400); RED BLOOD CELL CT 2.51 /CUMM (4.20-5.40); WHITE BLOOD CELL COUNT 7.5 /CUMM (4.8-10.8)
[2018-05-18] MEDS ORDERED: [UNRECOGNIZED DRUG - OTHER] PO (18:09)
--- NOTE | 2018-05-18 19:11 | RADIOLOGY REPORT ---
EXAMINATION: XR PORTABLE CHEST CLINICAL INFORMATION: Chest pain. COMPARISON: None TECHNIQUE: Portable frontal view of the chest was obtained. 6:28 PM FINDINGS: No significant abnormality is noted involving the heart, lungs, mediastinum, bony thorax or soft tissues. IMPRESSION: Unremarkable examination.
[2018-05-19] MEDS ORDERED: ZOFRAN ODT4 M1 SL (00:55)
[2018-05-19] MEDS ORDERED: PREMARIN1.25 MG PO (00:57)
[2018-05-19 01:09] VITALS: BP 99/61
== END 2018-05-19 01:14 ==
LOC: ERH 16:29
PROVIDERS: Physician Assistant
DX: D64.9 Anemia, unspecified (principal); N93.9 Abnormal uterine and vaginal bleeding, unspecified; R10.32 Left lower quadrant pain; R68.83 Chills (without fever)
CPT/HCPCS: 71045; 81001; 81025; 86920; 93005; 93010; 99291; J3101; P9016